=== PATIENT | female | born 1970 | race Caucasian/White ===

== ENCOUNTER → 2019-12-12 15:55 | Outpatient (CLI) | payer OTHER, SELFPAY ==
--- NOTE | ~2019-12-12 | MM_ITS ---
EXAMINATION: MM screening elise BI w johanne HISTORY: Screening mammogram TECHNIQUE: Craniocaudal and mediolateral oblique 3-D tomosynthesis images were obtained and synthetic 2-D images were generated. CAD analysis was submitted and interpreted. COMPARISON: 11/06/2018, 10/14/2017, 10/05/2016 bilateral digital screening mammogram examinations BREAST PARENCHYMAL COMPOSITION: There are scattered areas of fibroglandular density. FINDINGS: There is no evidence of suspicious mass, calcification, or architectural distortion to sugg est malignancy in either breast. There has been no suspicious interval change. IMPRESSION: 1. No mammographic evidence of malignancy. 2. Recommend routine screening mammography in one year. BI-RADS Category 1: Negative Reviewed, dictated and finalized at location A.
== END ==
PROVIDERS: Visit Provider Obstetrics & Gynecology
DX: Z12.31 Encounter for screening mammogram for malignant neoplasm of breast (principal)
CPT/HCPCS: 77063; 77067

== ENCOUNTER → 2020-12-12 15:57 | Outpatient (CLI) | payer OTHER, SELFPAY ==
--- NOTE | ~2020-12-12 | MM_ITS ---
EXAMINATION: MM screening elise BI w johanne HISTORY: Screening mammogram TECHNIQUE: Craniocaudal and mediolateral oblique 3-D tomosynthesis images were obtained and synthetic 2-D images were generated. CAD analysis was submitted and interpreted. COMPARISON: 12/12/2019, 11/06/2018, 10/14/2017 bilateral digital screening mammogram examinations BREAST PARENCHYMAL COMPOSITION: There are scattered areas of fibroglandular density. FINDINGS: Occasional scattered bilateral benign punctate microcalcifications. There is no evidence of suspicious mass, calcification, or architectural distortion to suggest malignancy in either breast. There has been no suspicious interval change. IMPRESSION: 1. No mammographic evidence of malignancy. 2. Recommend routine screening mammography in one year. BI-RADS Category 2: Benign finding(s). Reviewed, dictated and finalized at location A.
== END ==
PROVIDERS: Visit Provider Obstetrics & Gynecology
DX: Z12.31 Encounter for screening mammogram for malignant neoplasm of breast (principal)
CPT/HCPCS: 77063; 77067

== ENCOUNTER → 2021-12-14 16:07 | Outpatient (CLI) | payer OTHER, SELFPAY ==
--- NOTE | ~2021-12-14 | MM_ITS ---
EXAMINATION: MM screening elise BI w johanne HISTORY: Screening TECHNIQUE: Craniocaudal and mediolateral oblique 3-D tomosynthesis images were obtained and synthetic 2-D images were generated. CAD analysis was submitted and interpreted. COMPARISON: Comparison to multiple prior studies sequentially, with oldest reviewed study dated 09/2015. BREAST PARENCHYMAL COMPOSITION: There are scattered areas of fibroglandular density. FINDINGS: Stable benign-appearing calcifications. There is no evidence of suspicious mass, calcificat ion, or architectural distortion to suggest malignancy in either breast. There has been no suspicious interval change. IMPRESSION: 1. No mammographic evidence of malignancy. 2. Recommend routine screening mammography in one year. BI-RADS Category 1: Negative Reviewed, dictated and finalized at location A.
== END ==
PROVIDERS: PCP Obstetrics & Gynecology; Visit Provider Obstetrics & Gynecology
DX: Z12.31 Encounter for screening mammogram for malignant neoplasm of breast (principal)
CPT/HCPCS: 77063; 77067

== ENCOUNTER 2022-11-29 00:48 | Day surgery (SDC) | payer OTHER, SELFPAY ==
[2022-11-17 13:40] VITALS: BMI 39.0
--- NOTE | 2022-11-26 15:28 | PM.HPGS ---
History of Present Illness History of Present Illness Consent: Risks, benefits, and alternatives have been discussed and questions answered. Patient agrees to proceed with procedure. Chief complaint: neoplasm screening Narrative: Iris Lindsey is a 52 year old female Referred for colon cancer screening. Review of Systems Review of Systems: All systems reviewed & are unremarkable except as noted in HPI and below [facility] Social History Social History Smoking status: Never smoker Alcohol intake: never Substance use: never Substance use type: does not use Living arrangements: with family Spiritual care concerns: No Meds Home Medications and Allergies Home Medications Medication Instructions Recorded Confirmed Type omeprazole 20 mg capsule,delayed 20 mg PO DAILY 11/17/22 11/17/22 History release Allergies Allergy/AdvReac Type Severity Reaction Status Date / Time Penicillins Allergy Intermediate Rash Verified 11/29/22 09:56 Exam Const: General: alert Orientation/consciousness: patient oriented x3 Resp: Auscultation: clear to auscultation bilaterally Cardio: Rhythm: regular rhythm GI: GI Palp: Yes Soft to palpation and No Tenderness to palpation present (GI) Neuro: General: patient oriented x3 Assessment and Plan Assessment and plan (1) Colon cancer screening: Code(s): Z12.11 - Encounter for screening for malignant neoplasm of colon Status: Acute Assessment and Plan: Colonoscopy with possible biopsy or polypectomy or cautery or injection of substances.
[2022-11-29 09:56] VITALS: BP 141/94; PULSE 77; RESP 18; TEMP 36.3; O2SAT 100
[2022-11-29] MEDS: LACTATED RINGERS 1,000 ML 150 ML IV CONT (10:08)
--- NOTE | 2022-11-29 10:40 | P.PNAN_ITS ---
Anes - Initial Pre Proc Eval Procedure: Operation Date: 11/29/22 11:15 Proposed Procedures p Screening Colonoscopy - Loc Lopes MD Date/Time: 11/29/22 10:40 Surgeon: Loc Lopes MD Pre Op Diagnosis: neoplasm screening Patient Data Age: 52 Gender: F Height: 1.75 m Weight: 119.7 kg Last Vital Signs Temp 36.3 C L 11/29/22 09:56 Pulse 77 11/29/22 09:56 Resp 18 11/29/22 09:56 BP 141/94 H 11/29/22 09:56 Pulse Ox 100 11/29/22 09:56 O2 Del Method Room Air 11/29/22 09:56 Allergies Allergy/AdvReac Type Severity Reaction Status Date / Time Penicillins Allergy Intermediate Rash Verified 11/29/22 09:56 Home Medications Medication Instructions Recorded Confirmed Type omeprazole 20 mg capsule,delayed 20 mg PO DAILY 11/17/22 11/17/22 History release Patient hx anesthesia problems: none Family hx anesthesia problems: post op nausea/vomiting Results Review: All pre-operative results and documents have been reviewed as part of the pre- operative evaluation. [facility] Social History Social History Smoking status: Never smoker Alcohol intake: never Substance use: never Substance use type: does not use Living arrangements: with family Spiritual care concerns: No Anes - Eval Final PreProcedure Day of Procedure 11/29/22 10:40 Patient weight: obese Heart: regular rate and rhythm Lungs: clear to auscultation Airway: Mallampati scale class 1 Neurological: alert and oriented Last oral intake: >/= 8 hours ASA classification: II Emergent: no Anesthetic plan: proceed Anesthesia type and monitoring: general GIVS and standard monitoring Results Review: All pre-operative results and documents have been reviewed as part of the pre- operative evaluation. Informed Consent: The patient's anesthetic plan and its attendant risks and benefits were discussed with the patient/family/POA. Questions were solicited and answers provided to the satisfaction of the patient/family/POA.
[2022-11-29 11:35] VITALS: BP 87/54; PULSE 71; RESP 17; O2SAT 96
[2022-11-29 11:45] VITALS: BP 109/62; PULSE 72; RESP 22; O2SAT 98
[2022-11-29 11:55] VITALS: BP 122/70; PULSE 65; RESP 22; O2SAT 99
== END 2022-11-29 12:12 | disposition home or self-care (01) ==
PROVIDERS: PCP Obstetrics & Gynecology; Visit Provider Internal Medicine Gastroenterology
PROC: 0DJD8ZZ Inspection of Lower Intestinal Tract, Via Natural or Artificial Opening Endoscopic (ICD-10-PCS; CPT 45378; principal; 2022-11-29 11:15)
DX: Z12.31 Encounter for screening mammogram for malignant neoplasm of breast (principal); K57.30 Diverticulosis of large intestine without perforation or abscess without bleeding; D12.4 Benign neoplasm of descending colon; K64.8 Other hemorrhoids; E66.9 Obesity, unspecified; Z68.39 Body mass index [BMI] 39.0-39.9, adult
CPT/HCPCS: 45380; 88305; J2704; J7120

== ENCOUNTER → 2023-02-12 09:05 | Outpatient (CLI) | payer OTHER, SELFPAY ==
--- NOTE | ~2023-02-12 | MM_ITS ---
EXAMINATION: MM screening elise BI w johanne HISTORY: Screening mammogram TECHNIQUE: Craniocaudal and mediolateral oblique 3-D tomosynthesis images were obtained and synthetic 2-D images were generated. CAD analysis was submitted and interpreted. COMPARISON: 12/14/2021, , 12/12/2019 bilateral screening mammogram examinations BREAST PARENCHYMAL COMPOSITION: There are scattered areas of fibroglandular density. FINDINGS: There is no evidence of suspicious mass, calcification, or architectural distortion to sugg est malignancy in either breast. There has been no suspicious interval change. IMPRESSION: 1. No mammographic evidence of malignancy. 2. Recommend routine screening mammography in one year. BI-RADS Category 1: Negative Reviewed, dictated and finalized at location A.
== END ==
PROVIDERS: PCP Obstetrics & Gynecology; Visit Provider Obstetrics & Gynecology
DX: Z12.31 Encounter for screening mammogram for malignant neoplasm of breast (principal)
CPT/HCPCS: 77063; 77067

== ENCOUNTER 2023-10-15 08:13 | Outpatient (CLI) | payer OTHER, SELFPAY ==
--- NOTE | ~2023-10-15 | MR_ITS ---
EXAMINATION: MR ankle LT wo con DATE: 10/15/2023 10:47 INDICATION: Left ankle pain and swelling. TECHNIQUE: Magnetic resonance imaging (MRI) of the left ankle was performed without intravenous contr ast. Sequences included sagittal PD-weighted FS FSE, sagittal PD-weighted FSE, coronal PD-weighted FS FSE, coronal PD-weighted FSE, axial PD-weighted FS FSE, and axial PD-weighted FSE. COMPARISON: None. FINDINGS: Medial ankle ligaments: There are changes of prior sprain of the deltoid ligament characterized by thickening and increased s ignal intensity involving the superior component and disorganized fibers in the deep component. Lateral ankle ligaments: There are changes of prior lateral ankle sprain including complete tear of anterior talofibular ligam ent, thickening and increased signal of calcaneofibular ligament and anterior tibiofibular ligament, and disorganized fibers in posterior talofibular ligament. Posterior tibiofibular ligament is normal. Tendons: The medial and anterior ankle tendons are normal. There is mild peroneus longus tendinopathy. The Ach illes tendon is normal. Plantar fascia: There is thickening and increased signal involving the central band of the plantar fascia. There is a n enthesophyte at the calcaneal attachment. Bones/other: The talar dome is normal. There is mild osteoarthritis of subtalar joint with subchondral edema-like marrow signal intensity. Fluid: There is a small ankle joint effusion. IMPRESSION: 1. Mild subtalar joint osteoarthritis. 2. Changes of prior medial and lateral ankle sprains. 3. Mild peroneus longus tendinopathy. Reviewed, dictated and finalized at location E.
== END 2023-10-15 08:14 | disposition home or self-care (01) ==
LOC: CHSIMG 08:13
PROVIDERS: PCP Nurse Practitioner Family; Visit Provider Nurse Practitioner Family
DX: G89.29 Other chronic pain (principal); M25.572 Pain in left ankle and joints of left foot; M19.072 Primary osteoarthritis, left ankle and foot; S93.492A Sprain of other ligament of left ankle, initial encounter; M65.272 Calcific tendinitis, left ankle and foot
CPT/HCPCS: 73721

== ENCOUNTER 2024-02-15 16:00 | Outpatient (CLI) | payer OTHER, SELFPAY ==
--- NOTE | ~2024-02-15 | MM_ITS ---
EXAMINATION: MM screening elise BI w johanne HISTORY: Screening TECHNIQUE: Craniocaudal and mediolateral oblique 3-D tomosynthesis images were obtained and synthetic 2-D images were generated. CAD analysis was submitted and interpreted. COMPARISON: Comparison to multiple prior studies sequentially, with oldest reviewed study dated 10/14. BREAST PARENCHYMAL COMPOSITION: Not Dense. The breasts are almost entirely fatty. FINDINGS: There is a new focal asymmetry centrally in the right breast. There is no mammographic evid ence for malignancy in the right breast. IMPRESSION: 1. Right breast asymmetry located centrally, middle third. 2. Additional mammographic views and possible breast ultrasound are recommended. BI-RADS Category 0: Incomplete: Needs additional imaging evaluation. Reviewed, dictated and finalized at location B. IMPRESSION: 1. Right breast asymmetry located centrally, middle third. 2. Additional mammographic views and possible breast ultrasound are recommended . BI-RADS Category 0: Incomplete: Needs additional imaging evaluation.
== END 2024-02-15 16:01 | disposition home or self-care (01) ==
PROVIDERS: PCP Obstetrics & Gynecology; Visit Provider Obstetrics & Gynecology
DX: Z12.31 Encounter for screening mammogram for malignant neoplasm of breast (principal); R92.8 Other abnormal and inconclusive findings on diagnostic imaging of breast
CPT/HCPCS: 77063; 77067

== ENCOUNTER 2024-03-21 07:47 | Outpatient (CLI) | payer OTHER, SELFPAY ==
--- NOTE | ~2024-03-21 | MMUS_ITS ---
EXAMINATION: US breast RT complete, MM diagnostic elise RT w johanne HISTORY: Follow-up right breast asymmetry TECHNIQUE: Additional 3-D tomosynthesis images of the right breast were performed and synthetic 2-D i mages were generated. CAD analysis was submitted and interpreted. High resolution complete right marivel st ultrasound was performed. COMPARISON: Mammogram dated 02/15/2024 and 02/12/2023 BREAST PARENCHYMAL COMPOSITION: Not dense: There are scattered areas of fibroglandular density. FINDINGS: MAMMOGRAPHIC FINDINGS: There are no suspicious masses, calcifications or architectural distortion in the right breast to sug gest malignancy. ULTRASOUND: Complete US of all 4 quadrants of the right breast/s and retroareolar region was reviewed. At 1:00, 2 cm from the nipple there is a 6 mm cyst. At 12:00, 2 cm from the nipple there is a 6 mm cyst. No stefanie picious masses to suggest malignancy. IMPRESSION: 1. No evidence for malignancy in the right breast. Benign findings. 2. Routine yearly screening mammogram and regular clinical breast examination are recommended. BI-RADS Category 2: Benign finding(s). Reviewed, dictated and finalized at location [] [facility] IMPRESSION: 1. No evidence for malignancy in the right breast. Benign findings. 2. Routine yearly screening mammogram and regular clinical breast examination a re recommended. BI-RADS Category 2: Benign finding(s).
== END 2024-03-21 07:48 | disposition home or self-care (01) ==
LOC: MICIMG 07:48
PROVIDERS: PCP Obstetrics & Gynecology; Visit Provider Obstetrics & Gynecology
DX: R92.8 Other abnormal and inconclusive findings on diagnostic imaging of breast (principal)
CPT/HCPCS: 76641; 77061; 77065; G0279

== ENCOUNTER 2024-10-23 09:29 | Outpatient (CLI) | payer OTHER, SELFPAY ==
[2024-10-23 18:55] LABS: Hematocrit 43.2 % (37.0-47.0); Hemoglobin 13.1 g/dL (12.0-15.0); Immature Granulocyte Percent A 0.3 % (0-0.5); Lymphocytes Absolute Auto 1.81 K/mm3 (0.9-3.2); Mean Corpuscular HGB Conc 30.3 g/dl (32-36); Mean Corpuscular Hemoglobin 27.0 pg (26-34); Mean Corpuscular Volume 89.1 fl (80-100); Nucleated Red Blood Cells Absolute Auto 0.000 K/mm3 (0.0-0.012); Nucleated Red Blood Cells Perc 0.0 % (0.0-0.2); Platelet Count Result 368 k/mm3 (150-375); Red Blood Count 4.85 M/mm3 (4.2-5.4); White Blood Count 7.3 K/mm3 (4.5-10.0)
[2024-10-23 19:35] LABS: Alanine Aminotransferase 22 U/L (6-35); Albumin Level 4.3 g/dL (3.5-5.1); Alkaline Phosphatase 96 U/L (38-126); Anion Gap 11 mmol/L (4-12); Aspartate Amino Transferase 41 U/L (14-36); Bilirubin,Total 0.4 mg/dL (0.2-1.3); Blood Urea Nitrogen 12 mg/dL (7-17); Calcium 9.7 mg/dL (8.4-10.2); Carbon Dioxide 26 mmol/L (22-30); Chloride 105 mmol/L (98-107); Cholesterol 205 mg/dL (0-200); Estimated Glomerular Filt Rate > 60; Glucose 100 mg/dL (65-110); HDL Direct 44 mg/dL; Potassium 4.1 mmol/L (3.4-5.0); Sodium 142 mmol/L (137-145); Total Protein 8.0 g/dL (6.3-8.2); Triglycerides 96 mg/dL (<150)
[2024-10-23 19:37] LABS: MALB Creatinine Ratio 4.5 mg/g (0-30)
[2024-10-23 20:02] LABS: Thyroid Stimulating Hormone 3.340 uIU/mL (0.465-4.680)
[2024-10-23 20:09] LABS: Free T4 Free Thyroxine. 1.19 ng/dL (0.78-2.19)
[2024-10-23 20:22] LABS: Vitamin B12. 310.0 pg/mL (239-931)
[2024-10-23 20:23] LABS: Hemoglobin A1C. 5.8 % (<5.7)
[2024-10-25 11:34] LABS: Thyroid Peroxidase Antibodies. 2 IU/mL (<9)
== END 2024-10-23 09:30 | disposition home or self-care (01) ==
LOC: ANHBWCLAB 09:30
PROVIDERS: PCP Nurse Practitioner Adult Health; Visit Provider Nurse Practitioner Adult Health
DX: Z00.00 Encounter for general adult medical examination without abnormal findings (principal); E11.9 Type 2 diabetes mellitus without complications; Z51.81 Encounter for therapeutic drug level monitoring
CPT/HCPCS: 36415; 80053; 80061; 82043; 82607; 83036; 84439; 84443; 85025; 86376

== ENCOUNTER 2024-11-26 12:17 | Outpatient (CLI) | payer OTHER, SELFPAY ==
--- NOTE | ~2024-11-26 | XR_ITS ---
Left ankle Technique: AP, oblique, and lateral views were obtained. Clinical History: Pain Findings: No acute fracture or dislocation is seen. Osseous alignment is anatomic. Ankle mortise and other visualized joint spaces are preserved. Soft tissues are otherwise unremarkable. Impression: Unremarkable left ankle. Reviewed, dictated and finalized at location . Impression: Unremarkable left ankle.
== END 2024-11-26 12:18 | disposition home or self-care (01) ==
LOC: ANHBWCLAB 12:19 → ANHBWCIMG 12:21
PROVIDERS: PCP Nurse Practitioner Adult Health; Visit Provider Orthopaedic Surgery
DX: M25.572 Pain in left ankle and joints of left foot (principal)
CPT/HCPCS: 73610

== ENCOUNTER 2025-02-18 15:56 | Outpatient (CLI) | payer OTHER, SELFPAY ==
--- NOTE | ~2025-02-18 | MM_ITS ---
EXAMINATION: MM screening elise BI w johanne HISTORY: Screening TECHNIQUE: Craniocaudal and mediolateral oblique 3-D tomosynthesis images were obtained and synthetic 2-D images were generated. CAD analysis was submitted and interpreted. COMPARISON: Comparison to multiple prior studies sequentially, with oldest reviewed study dated 12/12/2019. BREAST PARENCHYMAL COMPOSITION: Not dense: There are scattered areas of fibroglandular density. FINDINGS: There are developing nodular asymmetries in the upper central aspect of the right breast, middle third. There is a developing asymmetry in the outer aspect of the left breast on CC view, middle third. There are no suspicious calcifications. IMPRESSION: 1. Developing bilateral breast asymmetries. 2. Additional mammographic views and possible breast ultrasound are recommended. BI-RADS Category 0: Incomplete: Needs additional imaging evaluation. Reviewed, dictated and finalized at location B. IMPRESSION: 1. Developing bilateral breast asymmetries. 2. Additional mammographic views and possible breast ultrasound are recommended . BI-RADS Category 0: Incomplete: Needs additional imaging evaluation.
== END 2025-02-18 15:57 | disposition home or self-care (01) ==
PROVIDERS: PCP Nurse Practitioner Adult Health; Visit Provider Obstetrics & Gynecology
DX: Z12.31 Encounter for screening mammogram for malignant neoplasm of breast (principal); R92.8 Other abnormal and inconclusive findings on diagnostic imaging of breast
CPT/HCPCS: 77063; 77067

== ENCOUNTER 2025-03-05 09:43 | Outpatient (CLI) | payer OTHER, SELFPAY ==
[2025-03-05 10:05] LABS: Hematocrit 40.4 % (37.0-47.0); Hemoglobin 13.1 g/dL (12.0-15.0); Mean Corpuscular HGB Conc 32.4 g/dl (32-36); Mean Corpuscular Hemoglobin 28.2 pg (26-34); Mean Corpuscular Volume 86.9 fl (80-100); Platelet Count Result 340 k/mm3 (150-375); Red Blood Count 4.65 M/mm3 (4.2-5.4); White Blood Count 8.8 K/mm3 (4.5-10.0)
--- OUTSIDE RECORDS SUMMARY | 2025-03-05 10:10 | XMS_ITS | Data Portability ---
Author Organization [facility], Main Office Address [address] [place] [address] Assessment Encounter Date Assessment Date Assessment LastModified by Organization Details LastModified Time 10/31/2023 10/31/2023 the patient has some mild chronic degenerative changes in the left ankle due to previous ankle sprains and injuries. This is noted on x-ray MRI and exam. We talked about treatment options today in detail we talked about a lace-up ankle brace she may pick 1 up on her own for now she is declined. She did want to try a shot of cortisone this worked well for her about a year ago therefore under sterile conditions I injected the patient's left ankle joint in the anterior lateral portion ankle with 2 cc of 0.5% Marcaine and 10 mg of Kenalog. Patient tolerated procedure well. We will start her with a course of Celebrex 200 mg daily I will see her back in 4-6 weeks see how she is doing. We talked about strengthening I offered her formal therapy she declined for now she is going to work on that on her own at home. She voiced understanding and agrees with the above plan she will call for any further problems difficulties or questions. Not available 10/31/2023 12:28:43 02/06/2024 02/06/2024 The patient has chronic mild degenerative chronic osteoarthritis of the left ankle. Most of the pain is localized laterally. She was requesting a shot of cortisone and worked very well for her last time. She will continue Celebrex 200 mg daily. Under sterile conditions I injected the patient's left ankle joint into the lateral gutter with 2 cc of 0.5% Bupivacaine and 10 mg of Kenalog. the patient tolerated procedure well. She will continue with the other the current conservative measures as described above. She voiced understanding and agrees above plan I will see her back as needed. Not available 02/06/2024 14:20:26 05/14/2024 05/14/2024 The patient has chronic mild degenerative change and primary osteoarthritis of the left ankle. We talked about treatment options today she wanted proceed with cortisone therefore under sterile conditions I injected the patient's left ankle joint into the lateral gutter with 2 cc of 0.5% bupivacaine and 10 mg of Kenalog. The patient tolerated the procedure well. She will continue with Celebrex 200 mg daily ice activity modification as necessary. She is also working on weight loss this may help somewhat as well recently started on Ozempic currently she is 5 ft 9 in tall 263 lb. I will see her back as needed we can do this again in 3 months if necessary she voiced understanding agrees with the above plan she will call for any further problems difficulties or questions. Not available 05/14/2024 09:57:12 08/13/2024 08/13/2024 The patient has mild degenerative changes and primary osteoarthritis of the left ankle joint as described. Shots have worked well for her in the past she would like to try this again today therefore under sterile conditions I injected the patient's left ankle joint into the lateral gutter with 2 cc of 0.5% bupivacaine and 10 mg of Kenalog. Patient tolerated procedure well. She will continue Celebrex 200 mg daily, we are also going to give her a short course of prednisone she will hold on the Celebrex while she is on the prednisone. We also talked about the possibility of using a lace-up ankle brace when her symptoms get significant enough. She will work on range of motion strengthening she has shoe inserts and will wear well cushioned footwear. I will see her back as needed hopefully the injection and time will help calm it down once again. She voiced understanding and agreed with the above plan she will call for any further problems difficulties or questions. Not available 08/13/2024 10:06:38 Plan of Treatment Reminders Order Date Submit Date Provider Last Modified By Organization Details Last Modified Time Details Appointments None recorded. Lab None recorded. Referral None recorded. Procedures injection/a spiration joint/bursa (PROC) 2024 025 [email or web address] In-Office Order, Internal Use Only DO Not Attach Compendium DO Not Attach Compendium, Do Not Delete/merge, 150[address] 5 09:41:06 injection/a spiration joint/bursa (PROC) 2024 025 [email or web address] In-Office Order, Internal Use Only DO Not Attach Compendium DO Not Attach Compendium, Do Not Delete/merge, 5 09:27:53 injection/a spiration joint/bursa (PROC) 2023 024 [email or web address] In-Office Order, Internal Use Only DO Not Attach Compendium DO Not Attach Compendium, Do Not Delete/merge, 4 14:11:50 injection/a spiration joint/bursa (PROC) 2023 024 [email or web address] In-Office Order, Internal Use Only DO Not Attach Compendium DO Not Attach Compendium, Do Not Delete/merge, 10:11:45 Surgeries None recorded. Imaging XR, ankle, 3 or more view 2023 024 [email or web address] [facility] [place], [address], [place], [address], 4 12:29:54 Medication Orders bupivacaine HCl 0.5 % (5 mg/mL) injection solution 2024 025 [id number], [address], [place], [place], [id number], 5 10:07:36 Kenalog 10 mg/mL suspension for injection 2024 025 [email or web address] [facility] #87069, [address], [place], [place], [id number], 5 10:07:36 prednisone 10 mg tablets in a dose pack 2024 025 [email or web address] [facility] #69135, [address], [place], [id number], 5 10:07:36 bupivacaine HCl 0.5 % (5 mg/mL) injection solution [address] [facility]129, [address], [place], [place], [id number], 5 10:26:46 Kenalog 10 mg/mL suspension for injection 2024 025 [facility]77902, [address], [place], [place], [id number], 5 10:26:46 bupivacaine HCl 0.5 % (5 mg/mL) injection solution [address] [facility]03437, [address], [place], [place], [id number], 4 14:37:06 Kenalog 10 mg/mL suspension for injection [address] [facility]77752, [address], [place], [place], [id number], 4 14:37:06 Celebrex 200 mg capsule [address] [facility]49566, [address], [place], [id number], 4 12:14:44 Kenalog 10 mg/mL suspension for injection 2023 024 [email or web address]070[facility], [address], [place], [place], [id number], 4 12:14:44 Marcaine (PF) 0.5 % (5 mg/mL) injection solution 2023 024 [email or web address] [facility] #37063, [address], [place], [place], [id number], 4 12:14:44 Patient TargetsNo targets recorded. Patient InstructionsNo instructions recorded. Reason for Referral None Reported. Results Created Date Observation Date Name Description Value Unit Range Abnormal Flag Note LastModifiedBy Organization Detail LastModifiedTime 10/31/19 24 XR, ankle , 3 or more view No observ ation record ed. [email or web address] [facility] [address] [facility] [address], [place], [address], 10/31/2023 12:29:53 10/31/19 24 10/15/2023 MRI, ankle , w/o contr ast No observ ation record ed. [email or web address] Not Available 2023 13:41:28 Result Notes None recorded. Problems Name Problem SNOMED Code Status Onset Date Resolution Date Notes Provider Name and Address Organization Details Recorded Time Pain in left foot 2446167253379 07 Active 2023 Annette Jacobo ATC L null, [employer] 4 09:41:27 Pain of left ankle joint 2203311008051 9103 Active 2023 Annette Jacobo ATC L null, [employer] 4 09:42:09 Osteoarthri tis of ankle and/or foot 71872986 Active 2023 JOLENE Berg [address] [facility], [facility] [address], [place], [address], [employer] 4 12:30:13 Osteoarthri tis of ankle and/or foot 41670450 Active [address] [facility], [place], [address], [employer] 4 12:30:24 Problem Notes None recorded. Medical Equipment None Reported. Allergies Allergen ID Allergen Name Allergen Category Reaction Reaction Severity Criticality Documentation Date Start Date Code Code System Note Provider Name and Address Organization Details Recorded Time 62285 Product containin g penicilli n (product) medicatio n Not available Not available Not available 10/31/2023 50632 8001 SNFABIANO Jacobo , ATC L ginger, [facility] [employer] 09:38:31 Medications Name Sig Start Date Stop Date Status Note LastModified by Organization Details LastModified Time celecoxib 200 mg capsule TAKE 1 CAPSULE DAILY 2024 active Not Available Not Available Not Avai lable doxycycline hyclate 100 mg capsule TAKE 1 CAPSULE BY MOUTH TWICE DAILY FOR 7 DAYS 10/30 completed Not Available Not Available Not Available bupivacaine HCl 0.5 % (5 mg/mL) injection solution Take 10 mg by injection route. 2024 active Not Available Not Available Not Avai lable prednisone 10 mg tablets in a dose pack Take 1 tab by mouth, 3 times a day for 3 daysTake 1 tab by mouth 2 times a day for 2 daysTake 1 tab by mouth once a day for 1 day 2024 active Not Available Not Available Not Avai lable Kenalog 10 mg/mL suspension for injection Take 10 mg by injection route. 2024 active [facility]: 0003- [phone]- [phone] Not Available Not Available Not Available triamcinolo ne acetonide 0.1 % topical ointment APPLY TO AFFECTED AREA TWICE DAILY NEEDED FOR ITCHING 10/30 completed Not Available Not Available Not Available omeprazole 20 mg capsule,del ayed release active Not Available Not Available Not Available Marcaine (PF) 0.5 % (5 mg/mL) injection solution Take 2 mL by injection route. 2023 active Not Available Not Available Not Avai lable Ozempic active Not Available Not Avail able Not Available Vitals Date Recorded Body height Body mass index (BMI) Body weight Provider Name and Address Organization Details Last Updated DateTime 05/14/2024 175.26 cm 38.8 kg/m2 716345.79 g Bria Calzada CNA [facility] [employer] 05/14/2024 09:25:33 Date Recorded Body height Body mass index (BMI) Body weight Provider Name and Address Organization Details Last Updated DateTime 08/13/2024 175.26 cm 39.4 kg/m2 262989.16 g Bria Calzada, DIRECTOR OF PEDIATRIC REHABILITATION [facility] [employer] [facility] 08/13/2024 09:36:04 Date Recorded Body height Body mass index (BMI) Body weight Provider Name and Address Organization Details Last Updated DateTime 10/31/2023 175.26 cm 39.9 kg/m2 256332.94 g Annette Jacobo, ATC L [facility] [employer] [facility] 10/31/2023 09:37:18 Date Recorded Body height Body mass index (BMI) Body weight Provider Name and Address Organization Details Last Updated DateTime 02/06/2024 175.26 cm 39.9 kg/m2 098304.94 g Bria Calzada, DIRECTOR OF PEDIATRIC REHABILITATION [facility] [employer] [facility] 02/06/2024 13:57:11 Social History None recorded. Functional Status Question Answer Note LastModified by Organization D etails LastModified Time What is your level of alcohol consumption? None [email or web address] Information not available 10/31/2023 Mental Status None recorded. Family History Relationship Description Onset Age of this Age Resolved Age Notes LastModified by Organization Details LastModified Time Father Heart disease [email or web address] Not available 11/2023 09:38:46 Father Hypertensive disorder [email or web address] Not available 11/2023 09:39:45 Father Diabetes mellitus [email or web address] Not available 11/2023 09:39:55 Mother Hypertensive disorder [email or web address] Not available 11/2023 09:39:45 Sister Hypertensive disorder [email or web address] Not available 11/2023 09:39:45 Notes:history of cancer-dad Medical History No medical history recorded. Gynecological HistoryNo gynecological history recorded. Obstetrics History GPAL:G 0 P 0 0 0 0 Past Encounters Encounter ID Performer Location Encounter Start Date Encounter Closed Date Diagnosis/Indication Diagnosis SNOMED-CT Code Diagnosis ICD10 Code Diagnosis IMO Codes Diagnosis Note [id number] eJremiah Saavedra MD [facility] [address] [place] [address] 10/31/2023 09:19:53 10/31/2023 10:24:32 Pain of left ankle joint 1913644724 3374829 M25.572 Osteoarthr itis of ankle and/or foot 29895525 M19.[id number] [facility] [address] [facility] [address] [place] [address] 02/06/2024 13:50:23 02/06/2024 15:03:17 Pain of left ankle joint 8506580465 6861835 M25.572 Osteoarthr itis of ankle and/or foot 47818634 M19.095 [id number] [address] [facility] [address] [place] [address] 05/14/2024 09:23:00 05/14/2024 09:44:37 Pain of left ankle joint 1157063329 8218864 M25.572 Osteoarthr itis of ankle and/or foot 39554042 M19.759 [id number] [facility] [address] [facility] [address] [place] [address] 08/13/2024 09:30:40 08/13/2024 09:56:36 Pain of left ankle joint 1414888986 4377375 M25.572 Osteoarthr itis of ankle and/or foot 60964730 M19.072 Health Concerns Section Related Observation LastModified by Organization Detai ls LastModified Time None Recorded Concern Status LastModified by Organization Details LastModified Time None Recorded Advance Directives Directive None Recorded Payers Insurance Date Sequence Insurance Name Policy Number Policy Coley Covered Member ID Coley Member ID Guarantor Name 08/22/2024 1 [facility] [id number] Iris Lindsey [id number] Iris Lindsey Notes Date Note Type Note Provider Name and Address Organization Details Recorded Time 10/31/2023 text/html The patient is a 53-year-old female who presents with an ongoing history of left ankle pain. She states many years ago she had a twisting type injury she has had some issues on and off over the years with swelling. She has tried to treat these conservatively with oral anti-inflammatory medication sdhs-wrx-jawfjox activity modification, a compression sock and she also had a cortisone injection about a year ago under the ankle which helped for awhile. 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 She does have to go up and down lots of stairs at work this aggravates her symptoms also. She reports some occasional grinding crepitation with certain motions aching pain localized more to the anterior lateral portion of the ankle. She saw her primary care physician who ordered an MRI scan of the left ankle. This shows what appears to be thickening of the deltoid ligament indicative of previous old injury and chronic inflammation. Lateral ankle ligaments show what appears to be a complete tear of the anterior talofibular ligament with thickening and scarring around the calcaneofibular ligament and anterior tibial fibular ligament. There is mild peroneus longus tendinopathy Achilles tendon is normal there is some plantar fascial thickening she has been treated for chronic plantar fasciitis previously. Talar dome is normal mild osteoarthritis of the subtalar joint is noted there is noted to be a small ankle joint effusion and there are some degenerative changes more in the medial than lateral gutter due to previous ankle sprains with hypertrophic spurring particularly off the tip of the medial malleolus. She states the pain is about a 4 on a scale of 1-10 on a regular basis the past few months have been bothering her quite a bit. She denies any specific new trauma or injury. Occasionally she will take some cdtu-cju-rikueps anti-inflammatory medication she comes in today for initial evaluation treatment of her left ankle pain as described she denies any sensation of instability or recurrent ankle sprains recently. One thing she does note his chronic pain and persistent puffiness and swelling particularly laterally. A new past medical history sheet was reviewed and signed on the intake sheet of today's date drug allergies current medications family social history previous surgical history 10 point review of systems was reviewed and discussed in detail today with the patient. JOLENE Berg [address] [facility], [facility] [address], [place], [address], [facility] 10/31/2023 12:30:56 02/06/2024 text/html Patient returns for recheck of her left ankle. She has known previous injuries many years ago that has resulted in some chronic mild degenerative changes. Most of the pain is localized to the lateral gutter even though a lot of her spurring and hypertrophic changes on the medial side of the ankle off the distal tip of the medial malleolus and in the medial gutter. There is some mild osteoarthritis of the subtalar joint and she will get some occasional swelling in the ankle. She states she will get popping and crepitation with the ambulation and range of motion she localizes her discomfort to the lateral gutter. A previous MRI scan showed what appears to be thickening of the deltoid ligament indicative of a previous old injury and some chronic inflammation the lateral ankle ligaments show what appear to be complete tear of the anterior talofibular ligament with thickening and scarring around the calcaneofibular ligament and anterior tibial fibular ligament. We treated her with a course of oral Celebrex and a shot of cortisone 3 months ago. She states this gave her excellent relief. She also has a lace-up ankle brace that she wears when she is out and about doing lots of activity. Overall she states it has been feeling pretty good until recently when her ankle pain has flared up once again. The pain is localized laterally she comes in today for recheck and to talk about possibly injecting her ankle again. JOLENE Berg [address], [address], [place], [address], [facility] 02/06/2024 14:20:38 05/14/2024 text/html the patient returns with left ankle pain she has chronic mild degenerative changes. Most of the degenerative changes noted to be in the medial gutter however she also has most of her pain symptoms in the lateral portion of the ankle. She had a old injury many years ago. She localizes her symptoms laterally. She denies any instability symptoms he has had no recent trauma or injury. She has a cortisone gave her excellent relief and it has been 3 months since her last injection the pain has recently returned she would like to try another injection today. A previous MRI scan shows what appears to be thickening of the deltoid ligament due to an old injury with some chronic inflammation. The lateral ankle ligaments show what appeared to be complete tear of the anterior talofibular ligament with thickening and scarring around the calcaneofibular ligament and anterior tibial fibular ligament. X-rays do show hypertrophic degenerative change more medially than laterally. She would like the injection laterally as this is where it bothers her and works the best for her. JOLENE Berg [address], [place], [address], [employer] 05/14/2024 09:57:23 08/13/2024 text/html Patient returns with left ankle pain in the lateral gutter region. She had an old injury with chronic mild degenerative change. Most of the degenerative changes are noted in the medial gutter but most of her pain is lateral portion of the ankle. Denies any sensation of instability does get some puffiness in the ankle compared to the opposite side particularly with overuse. If she elevates the ankle takes it easy when school is out of session and she is not at work this greatly improves her symptoms. Previous MRI scan shows thickening of the deltoid ligament due to the old injury with the chronic inflammation the lateral ankle ligaments show what appeared to be a complete tear of the anterior talofibular ligament with thickening and scarring around the calcaneofibular ligament and anterior tibial fibular ligament. She has pinpoint pain and tenderness over the anterior lateral gutter where she gets sharp stabbing pain shot of cortisone to help she would like to try that again today it has been 3 months since her last injection. Denies any new trauma or injury no new symptoms or complaints. JOLENE Berg [address], [place], [address], [employer] 08/13/2024 10:07:32 OBGyn Episode No OBEpisode recorded.
[2025-03-05 10:25] LABS: Alanine Aminotransferase 23 U/L (6-35); Albumin Level 4.5 g/dL (3.5-5.1); Alkaline Phosphatase 108 U/L (38-126); Anion Gap 8 mmol/L (4-12); Aspartate Amino Transferase 36 U/L (14-36); Bilirubin,Total 0.6 mg/dL (0.2-1.3); Blood Urea Nitrogen 18 mg/dL (7-17); Calcium 9.6 mg/dL (8.4-10.2); Carbon Dioxide 26 mmol/L (22-30); Chloride 104 mmol/L (98-107); Cholesterol 171 mg/dL (0-200); Estimated Glomerular Filt Rate > 60; Glucose 98 mg/dL (65-110); HDL Direct 47 mg/dL; Potassium 4.7 mmol/L (3.4-5.0); Sodium 138 mmol/L (137-145); Total Protein 8.2 g/dL (6.3-8.2); Triglycerides 90 mg/dL (<150)
[2025-03-05 10:49] LABS: Thyroid Stimulating Hormone Reflex 2.310 uIU/mL (0.465-4.68)
[2025-03-05 11:01] LABS: Hemoglobin A1C 5.5 % (<5.7)
== END 2025-03-05 09:44 | disposition home or self-care (01) ==
LOC: ANHLAB 09:45
PROVIDERS: PCP Nurse Practitioner Adult Health; Visit Provider Obstetrics & Gynecology
DX: E66.9 Obesity, unspecified (principal)
CPT/HCPCS: 36415; 80053; 80061; 83036; 84443; 85027

== ENCOUNTER 2025-04-15 08:38 | Outpatient (CLI) | payer OTHER, SELFPAY ==
--- NOTE | ~2025-04-15 | MMUS_ITS ---
EXAMINATION: MM diagnostic elise BI w johanne, US breast BI limited HISTORY: Additional imaging TECHNIQUE: Craniocaudal and mediolateral oblique 3-D tomosynthesis images were obtained and synthetic 2-D images were generated. CAD analysis was submitted and interpreted. Grayscale sonography over the area(s) of interest with color Doppler if there is a finding. COMPARISON: February 18. Older prior studies from 2023, 2022, and 2021. BREAST PARENCHYMAL COMPOSITION: Not Dense: There are scattered areas of fibroglandular tissue. MAMMOGRAM FINDINGS: Asymmetries question on the screening study appeared mostly compressible and similar to prior studies. There are no suspicious calcifications. No unexplained architectural distortion is seen. There are no skin or nipple abnormalities identified. There is no adenopathy seen on the images submitted. ULTRASOUND FINDINGS: Sonography was performed through 11-12 o'clock on the right and approximately 1:00 on the left. No cystic or solid masses are seen. IMPRESSION: There are no sonographic abnormalities. The mammographic appearance is probably unchanged. Six-month follow-up bilateral mammogram is recommended, which would be due in July,, 6 months after the screening study. BI-RADS 3 - Probably benign - short-term follow-up is recommended. Reviewed, dictated and finalized at location C. [facility] IMPRESSION: There are no sonographic abnormalities. The mammographic appearance is probably unchanged. Six-month follow-up bilateral mammogram is recommended, which would be due in July,, 6 months after the screening study. BI-RADS 3 - Probably benign - short-term follow-up is recommended.
== END 2025-04-15 08:39 | disposition home or self-care (01) ==
PROVIDERS: PCP Nurse Practitioner Adult Health; Visit Provider Nurse Practitioner Obstetrics & Gynecology
DX: R92.8 Other abnormal and inconclusive findings on diagnostic imaging of breast (principal)
CPT/HCPCS: 76642; 77062; 77066; G0279